=== PATIENT | male | born 1980 | race Caucasian/White ===

== ENCOUNTER 2018-06-02 08:44 | Emergency (ER) | payer SELFPAY ==
[2018-06-02 09:34] LABS: ADD MAN DIFF? NO
[2018-06-02 09:38] LABS: WHITE BLOOD COUNT 3.6 10^3/ul (4.8-10.8)
[2018-06-02 09:38] LABS: BASOPHILS % 0.6 % (0.0-2.0); EOSINOPHILS # 0.1 10^3/ul (0.0-0.5); EOSINOPHILS % 1.7 % (0.0-7.0); HEMATOCRIT 48.1 % (42.0-52.0); HEMOGLOBIN 16.4 g/dl (14.0-18.0); LYMPHOCYTES # 1.5 10^3/ul (0.8-2.9); LYMPHOCYTES % 41.2 % (15.0-51.0); MEAN CORPUSCULAR HEMOGLOBIN 30.5 pg (29.0-33.0); MEAN CORPUSCULAR HGB CONC 34.1 g/dl (32.0-37.0); MEAN CORPUSCULAR VOLUME 89.4 fl (82.0-101.0); MEAN PLATELET VOLUME 10.7 fl (7.4-10.4); MONOCYTE # 0.3 10^3/ul (0.3-0.9); NEUTROPHIL # 1.8 10^3/ul (1.6-7.5); NEUTROPHILS % 49.2 % (39.0-77.0); PLATELET COUNT 228 10^3/UL (140-415); RED BLOOD COUNT 5.38 10^6/ul (4.70-6.10); RED CELL DISTRIBUTION WIDTH 12.2 % (11.5-14.5)
[2018-06-02 09:41] LABS: ADD UMIC NO; UR ASCORBIC ACID NEGATIVE (NEGATIVE); UR BILIRUBIN (Dip) NEGATIVE (NEGATIVE); UR BLOOD (Dip) NEGATIVE (NEGATIVE); UR CLARITY CLEAR (CLEAR); UR COLOR YELLOW (YELLOW); UR GLUCOSE (Dip) NEGATIVE (NEGATIVE); UR KETONES (Dip) NEGATIVE (NEGATIVE); UR LEUKOCYTE ESTERASE (Dip) NEGATIVE Leu/ul (NEGATIVE); UR NITRITE (Dip) NEGATIVE (NEGATIVE); UR SPECIFIC GRAVITY (Dip) 1.018 (1.003-1.030); UR TOTAL PROTEIN (Dip) NEGATIVE (NEGATIVE); UR UROBILINOGEN (Dip) NEGATIVE (NEGATIVE)
[2018-06-02 09:57] LABS: ALANINE AMINOTRANSFERASE 67 IU/L (13-69); ALBUMIN 4.9 g/dl (3.3-4.9); ALKALINE PHOSPHATASE 74 IU/L (42-121); ANION GAP 11 (5-13); ASPARTATE AMINO TRANSFERASE 48 IU/L (15-46); BILIRUBIN,INDIRECT 1.1 mg/dl (0-1.1); BILIRUBIN,TOTAL 1.1 mg/dl (0.2-1.3); BLOOD UREA NITROGEN 18 mg/dl (7-20); CALCIUM 9.4 mg/dl (8.4-10.2); CARBON DIOXIDE 27 mmol/L (21-31); CHLORIDE 106 mmol/L (97-110); CHOL/HDL RATIO 4.2 RATIO; CHOLESTEROL 169 mg/dl (100-200); CREATINE KINASE 137 IU/L (23-200); CREATININE 1.13 mg/dl (0.61-1.24); Estimated GFR > 60 mL/min (>60); GLUCOSE 87 mg/dl (70-220); HDL CHOLESTEROL 40 mg/dl (28-63); INR 0.89; LDL CHOLESTEROL,CALCULATED 115 mg/dl; POTASSIUM 4.2 mmol/L (3.5-5.1); PROTIME 12.2 Sec (11.9-14.9); SODIUM 144 mmol/L (135-144); TOTAL PROTEIN 8.4 g/dl (6.1-8.1); TRIGLYCERIDES 72 mg/dl (0-149)
[2018-06-02 09:58] LABS: PARTIAL THROMBOPLASTIN TIME 31.5 Sec (23.0-35.0)
[2018-06-02 10:04] LABS: HEMOGLOBIN A1C 5.1 % (0-5.9)
[2018-06-02 10:09] LABS: CK INDEX 0.7; CK-MB 0.98 ng/ml (0.0-2.4); TROPONIN-I < 0.012 ng/ml (0.000-0.120)
[2018-06-02] MEDS: predniSONE 20 MG TAB PO (10:11)
[2018-06-02] MEDS: OCULAR LUBRICANT 3.5 GM OPH OINT RIGHT EYE (10:11)
[2018-06-02] MEDS: VALACYCLOVIR 500 MG TAB PO (10:11)
== END 2018-06-02 11:46 | disposition home or self-care (01) ==
LOC: E/R 08:44
DX: G51.0 Bell's palsy (principal)
CPT/HCPCS: 36415; 70450; 80053; 80061; 81003; 82550; 82553; 83036; 84484; 85025; 85610; 85730; 93005; 99285-25